=== PATIENT | male | born 1965 | race American Indian/Alaskan Native ===

== ENCOUNTER 2019-10-03 08:44 | Outpatient (CLI) | payer BC ==
[2019-10-03 09:57] LABS: Blood Urea Nitrogen 13 mg/dL (9-20)
--- NOTE | 2019-10-03 11:07 | Cat Scan Report ---
CTA CHEST, ABDOMEN, AND PELVIS WITH IV CONTRAST INDICATION: Abdominal aortic aneurysm without rupture. TECHNIQUE: Axial CT images were obtained through the chest, abdomen, and pelvis after injection of 100 cc Omnipa que 350 IV contrast. 3 plane MIP reconstructions were produced. All CT scans at this location are per formed using CT dose reduction for ALARA by means of automated exposure control. COMPARISON: None available. FINDINGS: Heart: Mildly enlarged. No additional significant abnormality. Thoracic Aorta: The ascending thoracic aorta is dilated and measures 4.2 x 4.1 cm on image 54 of seri es 2. This dilatation extends through the aortic arch, which measures up to 4.6 cm on image 35 of 2. No associated acute complication is seen. The descending thoracic aorta is normal in caliber. No othe r significant abnormality is seen. Great Vessels: No significant abnormality. Coronary Arteries: There is mild to moderate generalized coronary atherosclerosis. Pulmonary Arteries: No significant abnormality. Additional Chest Findings: No significant abnormality. Abdominal Aorta: Patent and normal in caliber with mild generalized atherosclerosis. No additional si gnificant abnormality. Renal arteries: No significant abnormality. Celiac artery: No significant abnormality. Superior Mesenteric Artery: No significant abnormality. Inferior mesenteric artery: No significant abnormality. Right Iliac Arteries: Mild nonobstructive atherosclerosis is seen along the common and internal iliac arteries. No additional significant abnormality. Left Iliac Arteries: Mild to moderate nonobstructive atherosclerosis is seen throughout the iliac art eries, most notably along the internal iliac artery. No additional significant abnormality. Femoral Arteries: There is mild generalized nonobstructive atherosclerosis bilaterally without an add itional significant abnormality. Additional Abdominopelvic Findings: Cholelithiasis is seen without evidence of acute cholecystitis. N o additional significant abnormality. Skeletal Structures: No acute abnormality. Degenerative changes are seen along the spine. Kyphoplasty /vertebral plasty changes are noted along the lower thoracic spine. Old fractures of the left transve rse processes of L3 and L4 are noted. Degenerative changes are also seen along the SI joints, right g reater than left. IMPRESSION: 1. Uncomplicated thoracic aortic aneurysm as detailed above. 2. No abdominal aortic aneurysm. 3. Additional findings as above. Signer Name: Jose Quiroz MD Signed: 10/03/2019 11:03 AM Workstation Name: [id number]
== END 2019-10-03 08:45 | disposition home or self-care (01) ==
LOC: CT 08:44
PROVIDERS: ATTEND Surgery Vascular Surgery
DX: I71.2 Thoracic aortic aneurysm, without rupture (principal); K80.80 Other cholelithiasis without obstruction; I51.7 Cardiomegaly; M47.814 Spondylosis without myelopathy or radiculopathy, thoracic region; I70.0 Atherosclerosis of aorta; M47.818 Spondylosis without myelopathy or radiculopathy, sacral and sacrococcygeal region; I70.8 Atherosclerosis of other arteries; I71.4 Abdominal aortic aneurysm, without rupture
CPT/HCPCS: 36415; 71275; 74174; 82565; 84520; Q9967